=== PATIENT | male | born 1940 | race Caucasian/White ===

== ENCOUNTER 2017-12-16 16:49 | Emergency (ER) | payer OTHER, MEDICARE ==
[2017-12-16] MEDS ORDERED: NS 500 ML IV ONE (17:21)
[2017-12-16] MEDS ORDERED: ONDANSETRON 4 MG/2 ML VIAL IVP ONE (17:21)
[2017-12-16] MEDS ORDERED: fentaNYL 100 MCG/2 ML INJ IVP ONE (17:21)
--- NOTE | 2017-12-16 17:30 | EDPHY ---
H & P Time Seen by Provider: 12/16/17 17:01 HPI/ROS: CHIEF COMPLAINT: Abdominal pain HISTORY OF PRESENT ILLNESS: The patient is a 77-year-old male who presents emergency department with severe left lower quadrant abdominal pain. The patient's pain started fairly suddenly at around 12:00 p.m. While he was vacuuming the car. He had no significant strain or reported injury. Patient has had nausea with no vomiting. He describes chills. No fever. No diarrhea. No dysuria or frequency. REVIEW OF SYSTEMS: My complete review of systems is negative except as mentioned in the HPI. Past Medical/Surgical History: Includes prediabetes, sinus infection, carotid artery disease, tremor, hyperlipidemia Past surgical history: No abdominal surgery. Skin cancer removal. Rotator cuff surgery Smoking Status: Former smoker Physical Exam: Vitals noted GENERAL: Mild acute distress, alert. HEENT: Eyes normal to inspection, normal pharynx, no signs of dehydration. NECK: [No thyromegaly, no lymphadenopathy, supple. RESPIRATORY: Clear to auscultation bilaterally, no rales, rhonchi or wheezing. CVS: Regular rate and rhythm, no rubs, murmurs, or gallops. ABDOMEN: Soft, nontender, nondistended, no organomegaly. Benign BACK: Normal to inspection, no CVA tenderness. SKIN: Normal color, no rash, warm, dry. No pallor. EXTREMITIES: No pedal edema, no calf tenderness, no Homans sign or cords, no joint swelling. NEURO/PSYCH: Alert and oriented x3, normal mood and affect, normal motor sensory exam. Constitutional: Initial Vital Signs Temperature (C) 36.4 C 12/16/17 16:57 Heart Rate 58 L 12/16/17 16:57 Respiratory Rate 18 12/16/17 16:57 Blood Pressure 146/96 H 12/16/17 16:57 O2 Sat (%) 97 12/16/17 16:57 O2 Delivery Mode Nasal Cannula O2 (L/minute) 2 Allergies/Adverse Reactions: No Known Allergies Allergy (Verified 12/16/17 16:55) Home Medications: Medication Instructions Recorded Acamprosate Calcium [Campral 333 10/10/13 MG (*)] Aspirin 81mg (OTC) 10/10/13 Multivitamin 10/10/13 Propranolol HCl [Inderal Xl] 10/10/13 Effexor Xr 12/16/17 Hydrocodone/APAP 5/325 [[place] 1 - 2 tab PO Q4 #13 tab 12/16/17 5/325 (RX)] Tamsulosin HCl [Flomax] 0.4 mg PO DAILY #4 cap 12/16/17 Medical Decision Making - Diagnostics Imaging Results: Imaging Impressions Abdomen/Pelvis CT 12/16/17 17:22 Impression: There is right and left coronary artery atherosclerotic disease. Heart size is normal without pericardial fluid. There is linear scarring at the left lung base. The lung bases are otherwise normally aerated without pleural fluid. There is left mild caliectasis and mild proximal hydroureter, with a 5 x 4 x 5.5 mm stone in the proximal ureter at the level of the L3-L4 disk space. No additional stones are seen. There is a 16 mm left lower pole lateral low density lesion with average Hounsfield units of -10, consistent with an incidental cyst. The liver has lobulated margins with a relatively hypertrophic caudate lobe, consistent with cirrhosis. There is no splenomegaly or ascites. There is a single portacaval node measuring [id number]. The pancreas looks normal, as do the adrenal glands and right kidney. Sigmoid colon is redundant without evidence of diverticulosis or diverticulitis. A normal short appendix is present. Some central prostate calcifications are consistent with chronic prostatitis. Impression: 1. Proximal left ureteral stone causing mild obstruction. 2. Coronary artery disease. 3. Cirrhosis. Results called and discussed with NAI SHANE, at 12/16/2017 17:52 Attention: This CT examination is specifically designed to evaluate patients who are clinically suspected of having acute obstructive uropathy. This examination does not use radiographic contrast, and as such, provides only a limited evaluation of the abdomen, pelvis and retroperitoneum. If there is further clinical suspicion for pathological conditions other than obstructive uropathy, a complete CT evaluation of the abdomen and pelvis utilizing intravenous, oral, and rectal contrast should be considered. General information for patients regarding this examination can be found at [email or web address]. If you have questions or comments about this report, please contact me at (hospital) or [phone] (cell). 'S ED Course/Re-evaluation: In the emergency department I discussed possible etiologies with the patient. I answered all his questions. IV was placed. Patient given fentanyl 75 mcg IV , Zofran 4 mg IV for pain and nausea. Laboratory studies and CT scan were ordered. Chemistry panel. Creatinine is normal. CT: Please refer the dictated report by Dr. Lr. Patient has a 5 mm stone at the level of L3-4. There is moderate hydronephrosis. Patient was given Flomax 0.4 mg p.o., and Toradol 15 mg. On recheck the patient was feeling much better. He had no abdominal pain. His symptoms have resolved. Abdomen is soft, nontender nondistended. 1915: After observation the patient still feels well. He has no abdominal pain. His abdomen is soft, nontender nondistended. I gave the patient warnings prior to leaving. He will return with worsening symptoms. Differential Diagnosis: My differential includes but is not limited to small-bowel obstruction, perforation, mesenteric ischemia, intussusception, volvulus, kidney stone, pyelonephritis - Data Points Laboratory Results: 12/16/17 17:30 POC Sodium 143 mEq/L mEq/L (135-145) POC Potassium 4.0 mEq/L mEq/L (3.3-5.0) POC Chloride 102.0 mEq/L mEq/L (97-110) POC Total CO2 26 mEq/L mEq/L (22-31) POC BUN 20 mg/dL mg/dL (7-23) POC Creatinine 0.8 mg/dL mg/dL (0.7-1.3) POC Glucose 205 mg/dL H mg/dL (70-100) POC Calcium 9.5 mg/dL mg/dL (8.5-10.4) Medications Given: Discontinued Medications Fentanyl (Sublimaze) 75 mcg IVP EDNOW ONE Stop: 12/16/17 17:22 Last Admin: 12/16/17 17:46 Dose: 75 mcg Sodium Chloride (Ns) 500 mls @ 0 mls/hr IV EDNOW ONE; Wide Open PRN Reason: Protocol Stop: 12/16/17 17:22 Last Admin: 12/16/17 17:45 Dose: 500 mls Ketorolac Tromethamine (Toradol) 15 mg IVP EDNOW ONE Stop: 12/16/17 17:57 Last Admin: 12/16/17 18:05 Dose: 15 mg Ondansetron HCl (Zofran) 4 mg IVP EDNOW ONE Stop: 12/16/17 17:22 Last Admin: 12/16/17 17:46 Dose: 4 mg Tamsulosin HCl (Flomax) 0.4 mg PO EDNOW ONE Stop: 12/16/17 18:20 Last Admin: 12/16/17 18:38 Dose: 0.4 mg Point of Care Test Results: CBC CBC Collection Date 12/16/17 CBC Collection Time 17:10 WBC 11.1 RBC 5.23 HGB 17.4 HCT 51.3 PLT 234 Neut # 8.2 Neut 74.0 LYMPH # 2.0 LYMPH 17.8 Other WBC # 0.9 Other WBC 8.2 MCV 98.1 Chemistry 12/16/17 17:30 POC Sodium 143 mEq/L mEq/L (135-145) POC Potassium 4.0 mEq/L mEq/L (3.3-5.0) POC Chloride 102.0 mEq/L mEq/L (97-110) POC Total CO2 26 mEq/L mEq/L (22-31) POC BUN 20 mg/dL mg/dL (7-23) POC Creatinine 0.8 mg/dL mg/dL (0.7-1.3) POC Glucose 205 mg/dL H mg/dL (70-100) POC Calcium 9.5 mg/dL mg/dL (8.5-10.4) Urine Dip Collection Date 12/16/17 Collection Time 17:50 Specific [place] (1.002-1.030) 1.025 PH (5.0-7.5) 7.0 Leukocytes (Negative) Negative Nitrites (Negative) Negative Protein (Negative) Negative Glucose (Negative) Negative Ketones (Negative) 2+ Urobilnogen (0.2-1.0 EU) 1.0 Bilirubin (Negative) Negative Blood (Negative) 2+ Departure - Departure Disposition: Home, Routine, Self-Care Clinical Impression: Kidney stone on left side Abdominal pain Qualifiers: Abdominal location: left lower quadrant Qualified Code(s): R10.32 - Left lower quadrant pain Condition: Good Instructions: Kidney Stones (ED) Additional Instructions: You have a 5 mm kidney stone on the left side. Treat your pain early. You can use ibuprofen every 6 hr. If your pain persist use the pain prescription medication given. Take your Flomax daily. Call tomorrow morning to make an appointment with Urology. Referrals: Hanane Barrera MD [Primary Care Provider] - As per Instructions Moise Cooper MD [Medical Doctor] - As per Instructions Prescriptions: Hydrocodone/APAP 5/325 [[place] 5/325 (RX)] 1 - 2 tab PO Q4 #13 tab Tamsulosin HCl [Flomax] 0.4 mg PO DAILY #4 cap
[2017-12-16] MEDS ORDERED: KETOROLAC 15 MG/1 ML SDV IVP ONE (17:56)
[2017-12-16] MEDS ORDERED: TAMSULOSIN HCL 0.4 MG CAP PO ONE ×2 (18:04→18:19)
[2017-12-16 19:32] VITALS: BP 122/73
== END 2017-12-16 19:32 | disposition home or self-care (01) ==
LOC: CED 16:49
DX: N20.0 Calculus of kidney (principal); E86.9 Volume depletion, unspecified; Z79.82 Long term (current) use of aspirin; Z87.891 Personal history of nicotine dependence
CPT/HCPCS: 74176; 96361; 96374; 96375; 99285; J1885; J2405; J3010; 80048-PO

== ENCOUNTER 2018-03-18 11:41 | Emergency (ER) | payer OTHER, MEDICARE ==
[2018-03-18 11:56] VITALS: BP 142/82
--- NOTE | 2018-03-18 12:08 | EDPHY ---
H & P Time Seen by Provider: 03/18/18 11:53 HPI/ROS: This patient sustained a laceration from [place] He slipped on a wet rock and struck the volar aspect of his right forearm against the fence sustaining a laceration. He reports mild burning discomfort and mild bleeding that stopped with direct pressure prior to arrival. The incident occurred shortly prior to arrival he came in by private vehicle for evaluation. He denies any other injuries. ROS: Neuro: No numbness or tingling Musculoskeletal: No underlying bony pain, and no other injuries 5 point review of symptoms is performed and otherwise negative with exception of pertinent positives and negatives listed in HPI and ROS Past Medical/Surgical History: Hypertension Tetanus is up-to-date Smoking Status: Former smoker Physical Exam: Physical Exam Vital signs are normal. General: No acute distress HEENT: Atraumatic. Eyes: Pupils equal and react to light. Extraocular motions are intact. Cardiac: Brisk capillary refill is intact throughout. Pulses are 2+ and symmetric in the affected extremity. Skin: No rash or pallor. Extremities: Atraumatic normal except for right forearm that exam is notable for a 5 cm full-thickness laceration. There is minimal active bleeding. Subcutaneous tissues evident but no deeper structures appear to be injured. There is no foreign bodies on direct examination of the wound and the base of the wound is easily visualized. There is no underlying bony tenderness. Neuro: Alert and oriented x3 with no sensorimotor deficits to the affected extremity Constitutional: Initial Vital Signs Temperature (C) 36.4 C 03/18/18 11:55 Heart Rate 70 03/18/18 11:55 Respiratory Rate 18 03/18/18 11:55 Blood Pressure 142/82 H 03/18/18 11:55 O2 Sat (%) 92 03/18/18 11:55 O2 Delivery Mode Room Air Allergies/Adverse Reactions: No Known Allergies Allergy (Verified 03/18/18 11:54) Home Medications: Medication Instructions Recorded Acamprosate Calcium [Campral 333 10/10/13 MG (*)] Aspirin 81mg (OTC) 10/10/13 Multivitamin 10/10/13 Propranolol HCl [Inderal Xl] 10/10/13 Effexor Xr 12/16/17 MDM/Departure - MDM Procedures: The wound is 5 cm, full-thickness. The wound was copiously irrigated with saline. The wound was explored for foreign bodies and none were found. The wound was prepped and draped in the normal sterile fashion. The wound was anesthetized using a 50 50 mix of 1% plain lidocaine and 0.5% Marcaine, 27 gauge needle, a mL with good effect. The edges were reapproximated using 4 0 Prolene on a PC 5 needle -12 running sutures with good hemostasis and cosmesis. The patient tolerated the procedure well. There were no complications. tech placed a dressing - Depart Disposition: Home, Routine, Self-Care Clinical Impression: Arm laceration Condition: Good Instructions: Care For Your Stitches (ED) Additional Instructions: Diagnosis: Arm laceration Plan: Keep the wound clean and dry for the next 2 days. Then clean daily with warm soapy water Tylenol for discomfort if needed. Return for suture removal in 12 days. Return sooner if he develops redness, discharge or other concerns for infection Referrals: Hanane Barrera MD [Primary Care Provider] - As per Instructions
== END 2018-03-18 12:44 | disposition home or self-care (01) ==
LOC: CED 11:41
PROC: 0HQBXZZ Repair Right Upper Arm Skin, External Approach (ICD-10-PCS; principal; 2018-03-18)
DX: S51.811A Laceration without foreign body of right forearm, initial encounter (principal); W01.198A Fall on same level from slipping, tripping and stumbling with subsequent striking against other object, initial encounter; Y92.018 Other place in single-family (private) house as the place of occurrence of the external cause